=== PATIENT | male | born 1965 | race African-American/Black ===

== ENCOUNTER 2017-09-10 09:23 | Emergency (ER) | payer BC, MEDICARE ==
[~2017-09-10] VITALS: Ht 170.2 cm; Wt 99.8 kg
[~2017-09-10 09:23] MED LIST: CYCLOBENZAPRINE10 MG ORAL; LIPITOR40 MG ORAL; LOSARTAN-HCTZ1 EACH ORAL; NORCO 5-325 TA1 EAC1 ORAL; Norflex PO; TRAMADOL HCL50 MG ORAL
[2017-09-10] MEDS ORDERED: Acetaminophen 500mg (ES) tab ORAL ONE (10:00)
[2017-09-10] MEDS ORDERED: Ketorolac 30mg Inj IM ONE (10:00)
[2017-09-10 10:05] VITALS: BP 127/88
--- NOTE | 2017-09-10 10:12 | Emergency Room Report ---
History of Present Illness General Chief Complaint: Back Pain-No Injury Source: Patient Present Illness HPI 52-year-old male presents ED complaining of back pain. Notes pain in his left lower back radiating down the left leg. History of sciatica. Has had prior surgery to his back for sciatica to the right leg. Pain is 10 out of 10, sharp. Denies any bowel or bladder incontinence. Denies any leg or motor weakness. States he's attempted to relieve pain with medications at home without relief. Patient does see Dr. Jaimes for pain management. No other aggravating relieving factors. Denies any other associated symptoms Allergies: Coded Allergies: PEACH (Unverified Allergy, Severe, 08/12/13) Patient History Past Medical History: ulcer Past Surgical History: none, other - back surgery Pertinent Family History: none Social History: Denies: smoking, alcohol use, drug use Immunizations: UTD Reviewed Nursing Documentation: PMH: Agreed; PSxH: Agreed Nursing Documentation-PMH Past Medical History: No History, Except For Hx Hypertension: Yes Hx Cancer: No Hx Gastrointestinal Problems: Yes - gastric ulcer Hx Neurological Problems: No Review of Systems All Other Systems: negative except mentioned in HPI Physical Exam Vital Signs Date Time Temp Pulse Resp B/P (MAP) Pulse Ox O2 Delivery O2 Flow Rate FiO2 09/10/17 09:35 97.9 84 14 127/88 97 Room Air 97.9 Sp02 EP Interpretation: reviewed, normal General Appearance: no apparent distress, alert, GCS 15, non-toxic Head: normocephalic Eyes: bilateral eye normal inspection, bilateral eye PERRL ENT: normal ENT inspection Neck: normal inspection Respiratory: normal inspection Cardiovascular #1: normal inspection Gastrointestinal: normal inspection Rectal: deferred Genitourinary: no CVA tenderness Musculoskeletal: tender - paraspinal lumbar tenderness on left Neurologic: alert, oriented x3, responsive, motor strength/tone normal, sensory intact, speech normal Psychiatric: normal inspection Skin: normal inspection Lymphatic: normal inspection Medical Decision Making Diagnostic Impression: Primary Impression: History of back surgery Additional Impression: Chronic back pain Qualified Codes: M54.41 - Lumbago with sciatica, right side; G89.29 - Other chronic pain ER Course Hospital Course 52-year-old male presents ED complaining of lower back pain. history of prior back surgery Differential diagnoses include: pyelonephritis, kidney stone, muscle strain, Lspine fracture Clinical course Patient placed on stretcher. After initial history and physical I ordered toradol, Robaxin, gabapentin and Lidoderm patch Patient initially refusing all narcotic medications. Patient on reassessment states pain is not significantly or improved. Is asking we can contact Dr. Jaimes for possible injection. we attempted to contact Dr. Jaimes but did not recieve a response. Patient agrees to one time dose of IM morphine and is asking to be discharged. He will follow-up with Dr. Jaimes as outpatient on Tuesday Diagnosis - history of back surgery, chronic back pain Stable and discharged to home with prescription for Lidoderm patch. Followup with PMD/Pain. Return to ED if symptoms recur or worsen Last Vital Signs Date Time Temp Pulse Resp B/P (MAP) Pulse Ox O2 Delivery O2 Flow Rate FiO2 09/10/17 10:05 82 14 127/88 97 Room Air 09/10/17 09:56 97.9 Status: improved Disposition: HOME, SELF-CARE Condition: Stable Scripts Lidocaine (Lidoderm) 1 Each Adh..patch 1 PATCH TOPIC DAILY, #7 PATCH 0 Refills Patch(es) may remain in place for up to 12 hours in any 24-hour period. Prov: Miguel A Kim MD 09/10/17 Miguel A Kim MD Sep 10, 2017 10:12
[2017-09-10] MEDS ORDERED: Morphine Sulfate 2mg/ml Inj(IV/IM USE ONLY) IM ONE (12:00)
[2017-09-10] MEDS ORDERED: LIDODERM700 M1 TOPIC (12:26)
[2017-09-10 12:40] VITALS: BP 124/86
== END 2017-09-10 12:40 | disposition home or self-care (01) ==
LOC: EMR 10:36
DX: M54.41 Lumbago with sciatica, right side (principal); G89.29 Other chronic pain; I10 Essential (primary) hypertension; Z87.11 Personal history of peptic ulcer disease; Z91.018 Allergy to other foods
CPT/HCPCS: 99283; J1885; J2270

== ENCOUNTER 2017-09-13 09:44 | Outpatient (CLI) | payer MEDICARE ==
[~2017-09-13 09:44] MED LIST changes: +LIDODERM700 M1 TOPIC
[2017-09-13 13:55] VITALS: BP 129/85
--- NOTE | 2017-09-14 09:09 | GI Initial Consult Note ---
History of Present Illness General Date patient seen: Sep 13, 2017 Time patient seen: 10:00 Reason for Consultation: Routine Colonoscopy Present Illness HPI 52 year old male that presents today for routine colonoscopy. The patient had a colonoscopy back in to 2014, found with two large polyps and recommended to have a repeat colonoscopy 3 years later. He presents today with constipation. Has had recent back surgery and is on pain medication. Denies any unintentional weight loss or changes in dietary habits. The patient ambulates with a cane and is a fall risk. History Provided By: Patient, Significant Other - . PMH Narrative HTN, GERD, gastric ulcer, dyslipidemia, chronic back pain. Past Surgical History: other - S/P back surgery in 2011. Family History Narrative DM-mother. Social History: Reports: smoking - smokes 5-10 cigs/day x 30 years. , alcohol use - occasional.; Denies: drug use, other Home Meds Active Scripts Lidocaine (Lidoderm) 1 Each Adh..patch, 1 PATCH TOPIC DAILY, #7 PATCH 0 Refills Patch(es) may remain in place for up to 12 hours in any 24-hour period. Prov:Miguel A Kim MD 09/10/17 Reported Medications [Norflex] No Conflict Check, 100 MG PO PRN 07/09/14 Cyclobenzaprine Hcl* (FLEXERIL*) 10 Mg Tablet, 10 MG ORAL PRN, TAB 15 Tramadol Hcl* (ULTRAM*) 50 Mg Tablet, 50 MG ORAL Q12HR PRN for For Pain, #30 TAB 0 Refills 15 Tramadol Hcl* (ULTRAM*) 50 Mg Tablet, 50 MG ORAL Q6H PRN for For Pain, #30 TAB 0 Refills 15 Hydrocodone Bit/Acetaminophen 5-325* (NORCO 5-325 TABLET*) 1 Each Tablet, 1 TAB ORAL Q4H PRN for For Pain, TAB 08/12/13 Losartan/Hydrochlorothiazide (LOSARTAN-HCTZ 100-12.5 MG TAB) 1 Each Tablet, 1 TAB ORAL DAILY, TAB 08/12/13 Atorvastatin Calcium* (LIPITOR*) 40 Mg Tablet, 40 MG ORAL BEDTIME, TAB 0 Refills 08/12/13 Med list reviewed/reconciled: Yes Allergies: Coded Allergies: PEACH (Unverified Allergy, Severe, 08/12/13) Review of Systems All Other Systems: negative except mentioned in HPI Physical Exam Vital Signs Date Time Temp Pulse Resp B/P (MAP) Pulse Ox O2 Delivery O2 Flow Rate FiO2 09/13/17 13:55 98.2 85 129/85 94 98.2 Sp02 EP Interpretation: reviewed, normal General Appearance: well appearing, no apparent distress, alert Head: normocephalic EENT: PERRL/EOMI, normal ENT inspection Neck: supple Respiratory: normal breath sounds, no respiratory distress Cardiovascular: normal rate Gastrointestinal: normal inspection, non tender, soft, normal bowel sounds, non -distended Rectal: deferred Genitourinary: deferred Musculoskeletal: normal inspection, back normal Neurologic: normal inspection, alert, oriented x3, responsive Psychiatric: normal inspection, judgement/insight normal, memory normal Skin: normal inspection, normal color, no rash, warm/dry, palpation normal, well hydrated Lymphatic: normal inspection, no adenopathy GI: Plan Problems: (1) Colonoscopy planned (2) Chronic back pain (3) GERD (gastroesophageal reflux disease) Plan Colonoscopy to be scheduled pending PA, will contact patient. - CLD & (Nulytely/Suprep/Movi-Prep) prep instructions given and acknowledged by patient. - NPO @ AR day prior procedure explained. Rx relistor for OIC Seen with Dr. Crisostomo. Thank you for this patient referral. The patient was seen and examined at bedside and all new and available data was reviewed in the patients chart. I agree with the above findings, impression and plan. (Patient seen earlier today. Signature stamp does not reflect patient encounter time.). - MD Christa PiperBullhead Community HospitalDavidson GUEST SERVICES DIRECTOR Sep 14, 2017 09:09
== END 2017-09-13 10:16 | disposition home or self-care (01) ==
LOC: PAN 09:44
DX: K21.9 Gastro-esophageal reflux disease without esophagitis (principal); G89.29 Other chronic pain; Z86.010 Personal history of colon polyps; K59.00 Constipation, unspecified; I10 Essential (primary) hypertension; F17.210 Nicotine dependence, cigarettes, uncomplicated
CPT/HCPCS: 99201

== ENCOUNTER 2017-09-21 08:07 | Day surgery (SDC) | payer MEDICARE ==
[~2017-09-21] VITALS: Ht 170.2 cm; Wt 103.9 kg
[2017-09-21] VITALS (8 sets, daily range): BP systolic 127–144; BP diastolic 79–88
--- NOTE | 2017-09-21 07:00 | Anethesia Preoperative Eval ---
Anesthesia Pre-op PMH/ROS General Date of Evaluation: Sep 21, 2017 Time of Evaluation: 06:58 Anesthesiologist: chidi ASA Score: ASA 3 Mallampati Score Class I : Soft palate, uvula, fauces, pillars visible Class II: Soft palate, uvula, fauces visible Class III: Soft palate, base of uvula visible Class IV: Only hard plate visible Mallampati Classification: Class II Surgeon: ziggy Diagnosis: hx/o colon polyps Surgical Procedure: colonoscopy Anesthesia History: none Social History: current smoker, alcohol use Family History: no anesthesia problems Allergies: Coded Allergies: PEACH (Unverified Allergy, Severe, 08/12/13) Medications: see eMAR Past Medical History Cardiovascular: Reports: HTN, other - acute coronary syndrome, dislipidemia, high cholesterol Gastrointestinal/Genitourinary: Reports: GERD, other - ulcer, gi bleed, Musculoskeletal/Integumentary: Reports: DDD Other: obesity Anesthesia Pre-op Phys. Exam Physician Exam Constitutional: NAD Neurologic: CN 2-12 intact Cardiovascular: RRR Respiratory: CTA Gastrointestinal: S/NT/ND Airway Exam Mallampati Score: Class II MO: full Neck: supple TMD: 2fb ROM: full Anesthesia Pre-op A/P Risk Assessment & Plan Assessment: asa3 Plan: mac Status Change Before Surgery: No Pre-Antibiotics Drug: Aisha Shin MD Sep 21, 2017 07:00
[~2017-09-21 08:07] MED LIST changes: +Atropine Inj 1mg/10ml Syr IV PRN; +DiphenhydrAMINE 50mg/ml Inj IVP PRN; +Labetalol 5mg/ml 20ml vial IV PRN; +Midazolam 2mg/2ml Inj IVP PRN; +fentaNYL 100 mcg/2 mL IV PRN
[2017-09-21] MEDS ORDERED: MULTIVITAMINS1 EAC2 ORAL (09:38)
--- NOTE | 2017-09-21 09:43 | Short Stay Surgery H&P ---
History of Present Illness History of Present Illness Chief Complaint see recent consult note HPI Robert Neves is a 52 year old male who was admitted on for History Of Colon Polyps Patient History Allergies: Coded Allergies: PEACH (Unverified Allergy, Severe, 08/12/13) Medication History Scheduled Atorvastatin Calcium* (Lipitor*), 40 MG ORAL BEDTIME, (Reported) Cyclobenzaprine Hcl* (Flexeril*), 10 MG ORAL PRN, (Reported) Losartan/Hydrochlorothiazide (Losartan-Hctz 100-12.5 Mg Tab), 1 TAB ORAL DAILY, (Reported) Multivitamins* (Multivitamins*), 1 TAB ORAL DAILY, (Reported) Scheduled PRN Hydrocodone Bit/Acetaminophen 5-325* ([place] 5-325 Tablet*), 1 TAB ORAL Q4H PRN for For Pain, (Reported) Discontinued Medications Lidocaine (Lidoderm), 1 PATCH TOPIC DAILY Discontinued Reason: Pt stopped taking med Tramadol Hcl* (Ultram*), 50 MG ORAL Q6H PRN for For Pain, (Reported) Discontinued Reason: Pt stopped taking med Tramadol Hcl* (Ultram*), 50 MG ORAL Q12HR PRN for For Pain, (Reported) Discontinued Reason: Pt stopped taking med [Norflex], 100 MG PO PRN, (Reported) Discontinued Reason: Pt stopped taking med Physical Exam Vital Signs Last Vital Signs Date Time Temp Pulse Resp B/P (MAP) Pulse Ox O2 Delivery O2 Flow Rate FiO2 09/21/17 09:31 97.4 83 20 139/80 (99) 99 97.4 09/21/17 09:23 Room Air Plan Attestation Are the patient's medical conditions optimized for surgery? Brandan Crisostomo MD Sep 21, 2017 09:43
--- NOTE | 2017-09-21 09:44 | Pre-Procedure Note/Attestation ---
Pre-Procedure Note/Attestation Complete Prior to Procedure Planned Procedure: not applicable Procedure Narrative: colonoscopy Indications for Procedure Pre-Operative Diagnosis: h/o large colon polyps Attestation I attest that I discussed the nature of the procedure; its benefits; risks and complications; and alternatives (and the risks and benefits of such alternatives ), prior to the procedure, with the patient (or the patient's legal membership sales representative). I attest that, if there was a reasonable possibility of needing a blood transfusion, the patient (or the patient's legal membership sales representative) was given the [facility] standardized written summary, pursuant to the [place] Blood Safety Act ([place] Health and Safety Code # 1645, as amended). I attest that I re-evaluated the patient just prior to the surgery and that there has been no change in the patient's H&P, except as documented below: Brandan Crisostomo MD Sep 21, 2017 09:44
[2017-09-21] MEDS ORDERED: Propofol 200mg/20ml IV ONE (09:45)
[2017-09-21] MEDS ORDERED: Lidocaine 1% MPF 10mg/ml 5ml ONE (09:45)
--- NOTE | 2017-09-21 10:15 | Endoscopy Procedure Note ---
Endoscopy Procedure Note General Indication for Procedure: h/o colon polyps Procedures Performed: colonoscopy Operative Findings/Diagnosis: 4 colon polyps Specimen: yes Pt Tolerated Procedure Well: Yes Estimated Blood Loss: none Anesthesia Anesthesiologist: denisa Anesthesia: MAC Inserted Devices Implant(s) used?: No Quality Quality of Bowel Preparation: Good Did scope reach the cecum?: Yes Was there any complications?: No GI Core Measures 50 yrs or older w/o bx or poly: No 10yrs. F/U not recommended: Yes If not recommended, why?: Above average risk 10 yrs. F/U needed: Yes 18 years or older w/prev. colo: Yes <3yrs. since last colonoscopy: No Brandan Crisostomo MD Sep 21, 2017 10:15
--- NOTE | 2017-09-21 12:45 | Procedure Note ---
DATE OF PROCEDURE: 09/21/2017 SURGEON: Brandan Crisostomo M.D. ANESTHESIOLOGIST: Dr. Hill. PROCEDURE: Colonoscopy with biopsy. ANESTHESIA: Per Dr. Hill. INSTRUMENT: Olympus adult flexible colonoscope. INDICATION: History of large colonic polyp. DESCRIPTION OF PROCEDURE: After informed consent was obtained and the patient was adequately sedated, first rectal exam was performed which was normal. Then, the scope was advanced from the rectum into the cecum documented by the appendiceal orifice, ileocecal valve, and right upper quadrant palpation. Quality of prep was very good. The patient had a total of 4 polyps, two in the transverse colon and two in the rectum, all of them small, removed with the cold biopsy forceps technique. The patient had evidence of diverticulosis, mostly on the left side and some scattered on the right side, and there was some minimum inflammation, pericolitis, diverticulitis in the left colon. Again, inflammation in the left colon, most probably peridiverticulitis or colitis, but was very minimum. Retroflexion of rectum showed evidence of showed small internal hemorrhoids. SUMMARY OF FINDINGS: 1. Four colonic polys removed, see above for details. 2. Diverticulosis. 3. Internal hemorrhoids. RECOMMENDATIONS: 1. Follow up biopsy results and treat accordingly. 2. Given 4 polyps, he would need repeat colonoscopy in three years. Brandan Crisostomo M.D. DR: Junaid JOB#: [id number] CC:
--- NOTE | 2017-09-21 13:31 | Immediate Post-Op Evaluation ---
Immediate Post-Op Evalulation Immediate Post-Op Evalulation Procedure: colonoscopy w/bx Date of Evaluation: Sep 21, 2017 Time of Evaluation: 10:32 IV Fluids: 150ml 0.9ns Blood Products: none Estimated Blood Loss: negligible Blood Pressure Systolic: 144 Blood Pressure Diastolic: 88 Pulse Rate: 78 Respiratory Rate: 18 O2 Sat by Pulse Oximetry: 100 Temperature (Fahrenheit): 98.5 Pain Score (1-10): 0 Nausea: No Vomiting: No Complications none Patient Status: awake, reacts, patent Hydration Status: adequate Drug: Aisha Shin MD Sep 21, 2017 13:31
--- NOTE | 2017-09-21 13:32 | 48 Hour Post Anesthesia Eval ---
Post Anesthesia Evaluation Procedure: colonoscopy w/bx Date of Evaluation: Sep 21, 2017 Time of Evaluation: 10:34 Blood Pressure Systolic: 132 0: 79 Pulse Rate: 74 Respiratory Rate: 18 Temperature (Fahrenheit): 98.5 O2 Sat by Pulse Oximetry: 100 Airway: other Nausea: No Vomiting: No Pain Intensity: 0 Hydration Status: adequate Cardiopulmonary Status: stable Mental Status/LOC: patient returned to baseline Post-Anesthesia Complications: none Follow-up care needed: N/A Aisha Conklin MD Sep 21, 2017 13:32
== END 2017-09-21 11:25 | disposition home or self-care (01) ==
LOC: GAS 08:07
DX: D12.3 Benign neoplasm of transverse colon (principal); K62.1 Rectal polyp; K57.32 Diverticulitis of large intestine without perforation or abscess without bleeding; K52.9 Noninfective gastroenteritis and colitis, unspecified; K64.8 Other hemorrhoids; Z86.010 Personal history of colon polyps; I10 Essential (primary) hypertension; E78.5 Hyperlipidemia, unspecified; E78.00 Pure hypercholesterolemia, unspecified; K21.9 Gastro-esophageal reflux disease without esophagitis; E66.9 Obesity, unspecified; Z91.018 Allergy to other foods
CPT/HCPCS: 45380; 93005; J2704; 94003; 94150

== ENCOUNTER 2017-10-25 10:48 | Outpatient (CLI) | payer MEDICARE ==
[~2017-10-25 10:48] MED LIST changes: -Atropine Inj 1mg/10ml Syr IV PRN; -DiphenhydrAMINE 50mg/ml Inj IVP PRN; -Labetalol 5mg/ml 20ml vial IV PRN; +MULTIVITAMINS1 EAC2 ORAL; -Midazolam 2mg/2ml Inj IVP PRN; -fentaNYL 100 mcg/2 mL IV PRN
[2017-10-25 11:17] VITALS: BP 130/85
--- NOTE | 2017-10-25 15:27 | GI Progress Note ---
Assessment/Plan Problems: (1) Chronic back pain ICD Codes: G89.29 - Other chronic pain; M54.9 - Chronic back pain SNOMED: 755946153 (2) GERD (gastroesophageal reflux disease) ICD Codes: K21.9 - GERD (gastroesophageal reflux disease) SNOMED: 595930814 Status: stable Status Narrative Seen with Dr. Crisostomo. Assessment/Plan SUMMARY OF FINDINGS reviewed with patient: 1. Four colonic polys removed, see above for details. 2. Diverticulosis. 3. Internal hemorrhoids. RECOMMENDATIONS: 1. Follow up biopsy results and treat accordingly. >> unremarkable RTC prn 2. Given 4 polyps, he would need repeat colonoscopy in three years. The patient was seen and examined at bedside and all new and available data was reviewed in the patients chart. I agree with the above findings, impression and plan. (Patient seen earlier today. Signature stamp does not reflect patient encounter time.). - Brandan Crisostomo MD Subjective Gastrointestinal/Abdominal: Reports: no symptoms Objective Last 24 Hour Vital Signs Date Time Temp Pulse Resp B/P (MAP) Pulse Ox O2 Delivery O2 Flow Rate FiO2 10/25/17 11:17 98.3 84 130/85 94 98.3 General Appearance: WD/WN, no apparent distress, alert Cardiovascular: normal rate Respiratory/Chest: normal breath sounds, no respiratory distress Abdominal Exam: normal bowel sounds, non tender, soft Extremities: normal range of motion, non-tender Mel Goodwin NP Oct 25, 2017 15:27
== END 2017-10-25 11:18 | disposition home or self-care (01) ==
LOC: PAN 10:48
DX: K21.9 Gastro-esophageal reflux disease without esophagitis (principal); G89.29 Other chronic pain; K57.90 Diverticulosis of intestine, part unspecified, without perforation or abscess without bleeding; Z86.010 Personal history of colon polyps
CPT/HCPCS: 99212

== ENCOUNTER 2017-10-26 09:30 | Outpatient (RCR) | payer MEDICARE | END 2017-10-28 | disposition home or self-care (01) | LOC: PTY 09:30 | DX: M54.5 Low back pain (principal) ==

== ENCOUNTER 2017-11-01 10:58 | Outpatient (RCR) | payer MEDICARE | END 2017-11-27 | disposition home or self-care (01) | LOC: PTY 10:58 | DX: M54.5 Low back pain (principal); Z98.890 Other specified postprocedural states | CPT/HCPCS: 97032; 97110; 97140; G8979; G8980 ==